=== PATIENT | male | born 1955 | race Caucasian/White ===

== ENCOUNTER 2020-09-06 14:48 | Outpatient (CLI) | payer MEDICARE, SELFPAY ==
--- NOTE | ~2020-09-06 | CT_ITS ---
EXAMINATION: CT lung screening DATE: 09/06/2020 15:35 INDICATION: Personal history of tobacco dependence TECHNIQUE: Computed tomography (CT) of the chest was performed without intravenous contrast. The dose -length product was 114.94 mGy-cm. Automated exposure control and iterative reconstruction technique were employed. COMPARISON: CT dated 01/05/2016 FINDINGS: No thoracic lymphadenopathy. Heart size is normal. Status post median sternotomy for CABG. No significant pleural or pericardial effusion. Visualized aspects of the upper abdomen are unremarka ble. No endobronchial lesions. There is a 7 mm left lower lobe nodule with central calcification, not definitely seen on prior examination, likely benign granuloma. No pneumothorax. No endobronchial les ions. 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 No acute osseous abnormality. IMPRESSION: 1. Lung-RADS category 3: Probably benign. Further evaluation is recommended with noncontrast low-dose chest CT in 6 months. Reviewed, dictated and finalized at location A. IMPRESSION: 1. Lung-RADS category 3: Probably benign. Further evaluation is recommended wit h noncontrast low-dose chest CT in 6 months.
== END 2020-09-06 14:49 | disposition home or self-care (01) ==
LOC: ANHIMG 14:52
PROVIDERS: PCP Internal Medicine; Visit Provider Internal Medicine
DX: Z87.891 Personal history of nicotine dependence (principal); R91.8 Other nonspecific abnormal finding of lung field
CPT/HCPCS: 71271

== ENCOUNTER 2020-09-14 10:51 | Outpatient (CLI) | payer MEDICARE, SELFPAY ==
--- NOTE | ~2020-09-14 | US_ITS ---
EXAMINATION: US aorta [facility] scrn DATE: 09/14/2020 11:21 INDICATION: Abdominal aortic aneurysm screening. TECHNIQUE: Grayscale, color Doppler, and pulsed Doppler images of the aorta and common iliac arteries were obtained. COMPARISON: Chest CT 09/06/2020 FINDINGS: The aorta is normal in caliber and demonstrates atherosclerosis. The right common iliac artery is nor mal in caliber. The left common iliac artery is normal in caliber. IMPRESSION: 1. Aortic atherosclerosis. No aneurysm. Reviewed, dictated and finalized at location A.
== END 2020-09-14 10:52 | disposition home or self-care (01) ==
LOC: ANHIMG 10:57
PROVIDERS: PCP Internal Medicine; Visit Provider Internal Medicine
DX: Z87.891 Personal history of nicotine dependence (principal); I70.0 Atherosclerosis of aorta
CPT/HCPCS: 76706

== ENCOUNTER 2020-09-20 14:41 | Outpatient (CLI) | payer MEDICARE, SELFPAY ==
--- NOTE | ~2020-09-20 | US_ITS ---
EXAMINATION: US retroperitoneal comp DATE: 09/20/2020 15:13 INDICATION: Chronic kidney disease TECHNIQUE: Multiple grayscale and Doppler ultrasound images of the kidneys were obtained. COMPARISON: None. FINDINGS: The right kidney measures 9.2 x 5.7 x 4.8 cm. The left kidney measures 9.3 x 4.1 x 4.8 cm. The kidneys demonstrate normal parenchymal echogenicity. There is no hydronephrosis. The bladder wall measures up to 4 mm in thickness. IMPRESSION: 1. Mild atrophy of the kidneys. Reviewed, dictated and finalized at location B.
== END 2020-09-20 14:42 | disposition home or self-care (01) ==
PROVIDERS: PCP Internal Medicine; Visit Provider Internal Medicine
DX: N18.9 Chronic kidney disease, unspecified (principal)
CPT/HCPCS: 76770

== ENCOUNTER 2020-11-14 00:24 | Day surgery (SDC) | payer MEDICARE, SELFPAY ==
[2020-11-01 14:55] VITALS: BMI 28.4
[2020-11-14 07:07] VITALS: BP 91/67; PULSE 112; RESP 15; TEMP 35.8; O2SAT 99
[2020-11-14] MEDS: LACTATED RINGERS 1,000 ML 150 ML IV CONT (07:13)
[2020-11-14 07:20] LABS: Glucose Point of Care 150 mg/dl (65-105)
--- NOTE | 2020-11-14 07:36 | P.PNAN_ITS ---
Anes - Initial Pre Proc Eval Procedure: Operation Date: 11/14/20 08:30 Proposed Procedures p Screening Colonoscopy - Jasper Adams MD Date/Time: 11/14/20 07:36 Surgeon: Jasper Adams MD Pre Op Diagnosis: neoplasm screening Patient Data Age: 65 Gender: M Height: 1.68 m Weight: 80 kg Last Vital Signs Temp 96.4 F L 11/14/20 07:07 Pulse 112 H 11/14/20 07:07 Resp 15 11/14/20 07:07 BP 91/67 L 11/14/20 07:07 Pulse Ox 99 11/14/20 07:07 Allergies Allergy/AdvReac Type Severity Reaction Status Date / Time No Known Allergies Allergy Verified 11/14/20 07:06 Home Medications Medication Instructions Recorded Confirmed Type aspirin 81 mg tablet,delayed 81 mg PO DAILY #30 tablet 03/23/20 11/14/20 Rx release carvedilol 3.125 mg tablet 3.125 mg PO Q12H 03/23/20 11/14/20 History multivitamin 1 tablet PO DAILY 03/23/20 11/14/20 History metformin 500 mg tablet 500 mg PO BID #180 tablet 09/29/20 11/14/20 Rx atorvastatin 40 mg tablet 40 mg PO DAILY #90 tablet 11/01/20 11/14/20 Rx cholecalciferol (vitamin D3) 125 125 mcg PO DAILY 11/01/20 11/14/20 History mcg (5,000 unit) tablet lisinopril 20 mg tablet 20 mg PO DAILY #90 tablet 11/01/20 11/14/20 Rx Laboratory Tests 11/14/20 07:12 POC Capillary Glucose 150 mg/dl H mg/dl (65-105) Patient hx anesthesia problems: none Family hx anesthesia problems: none PMFSH Past Medical History Medical History (Updated 11/01/20 @ 12:30 by Dandy Denise MD) CKD (chronic kidney disease) Surgical History Surgical History (Updated 03/23/20 @ 09:43 by Constance Wiley CMA) History of heart surgery heart surgery Social History Social History (Updated 11/01/20 @ 08:12 by Annette Laboy CNA) Smoking packs per day: 1 Smoking cigarettes per day: 20.0 Years smoked: 40 Smoking pack-years: 40.00 Smoking status: Former smoker Tobacco type: cigarettes Second hand tobacco smoke exposure: No Smoking end date: 03/03/15 Alcohol intake: never Living arrangements: with family Spiritual care concerns: No Anes - Eval Final PreProcedure Day of Procedure 11/14/20 07:36 Patient weight: overweight Heart: regular rate and rhythm Lungs: clear to auscultation Airway: Mallampati scale class III Neurological: alert and oriented Last oral intake: >/= 8 hours ASA classification: III Emergent: no Anesthetic plan: proceed Anesthesia type and monitoring: general GIVS and standard monitoring Informed Consent: The patient's anesthetic plan and its attendant risks and benefits were discussed with the patient/family/POA. Questions were solicited an d answers provided to the satisfaction of the patient/family/POA.
--- NOTE | 2020-11-14 08:10 | PM.HPGS ---
History of Present Illness History of Present Illness Consent: Risks, benefits, and alternatives have been discussed and questions answered. Patient agrees to proceed with procedure. Chief complaint: neoplasm screening Narrative: Israel Barrett is a 65 year old male here for first screening colonoscopy Review of Systems Constitutional: Constitutional: Denies headache(s) and Denies weakness Eyes: Eyes: Denies blurry vision ENT: Reports Normal hearing present, Denies headache(s) and Denies neck pain Cardiovascular: Cardiovascular: Denies chest pain and Denies dyspnea Respiratory: Respiratory: Denies dyspnea Gastrointestinal: Gastrointestinal: Reports no additional gastrointestinal complaints Genitourinary: Genitourinary: Denies dysuria Musculoskeletal: Musculoskeletal: Denies neck pain Integumentary/Breasts: Skin/Breast: Denies dry skin Neurologic: Reports Normal hearing present, Denies headache(s) and Denies weakness Psychiatric: Psychiatric: Denies anxiety Endocrine: Endocrine: Denies change in body appearance Hematologic/Lymphatic: Hematologic/Lymphatic: Denies easy bleeding Allergic/Immunologic: Allergic/Immunologic: Denies urticaria [facility] Past Medical History Medical History (Updated 11/14/20 @ 08:10 by Jasper Adams MD) CKD (chronic kidney disease) Colon cancer screening Surgical History Surgical History (Updated 03/23/20 @ 09:43 by Constance Wiley CMA) History of heart surgery heart surgery Social History Social History (Updated 11/01/20 @ 08:12 by Annette Laboy CNA) Smoking packs per day: 1 Smoking cigarettes per day: 20.0 Years smoked: 40 Smoking pack-years: 40.00 Smoking status: Former smoker Tobacco type: cigarettes Second hand tobacco smoke exposure: No Smoking end date: 03/03/15 Alcohol intake: never Living arrangements: with family Spiritual care concerns: No Meds Home Medications and Allergies Home Medications Medication Instructions Recorded Confirmed Type aspirin 81 mg tablet,delayed 81 mg PO DAILY #30 tablet 03/23/20 11/14/20 Rx release carvedilol 3.125 mg tablet 3.125 mg PO Q12H 03/23/20 11/14/20 History multivitamin 1 tablet PO DAILY 03/23/20 11/14/20 History metformin 500 mg tablet 500 mg PO BID #180 tablet 09/29/20 11/14/20 Rx atorvastatin 40 mg tablet 40 mg PO DAILY #90 tablet 11/01/20 11/14/20 Rx cholecalciferol (vitamin D3) 125 125 mcg PO DAILY 11/01/20 11/14/20 History mcg (5,000 unit) tablet lisinopril 20 mg tablet 20 mg PO DAILY #90 tablet 11/01/20 11/14/20 Rx Allergies Allergy/AdvReac Type Severity Reaction Status Date / Time No Known Allergies Allergy Verified 11/14/20 07:06 Vital Signs Vital Signs - 24 hr 11/14/20 07:07 Temperature 96.4 F L Pulse Rate 112 H Respiratory Rate 15 Blood Pressure 91/67 L Pulse Oximetry 99 Exam Const: General: comfortable and no acute distress HENMT: General nose exam: Normal nares present Eyes: General: appearance normal, both eyes and all related structures Neck: Neck: no JVD Resp: Auscultation: clear to auscultation bilaterally Cardio: Rate: regular rate Rhythm: regular rhythm GI: Inspection: non-distended GI Palp: Yes Soft to palpation Skin: General skin exam: normal color Neuro: General: gait normal Speech: normal speech Extrem: General: normal to inspection Psych: Mental Status: mental status grossly normal Assessment and Plan Assessment and plan (1) Colon cancer screening: Code(s): Z12.11 - Encounter for screening for malignant neoplasm of colon Status: Acute Assessment and Plan: colonoscopy
[2020-11-14 08:28] VITALS: BP 83/64; PULSE 88; RESP 10; O2SAT 96
[2020-11-14 08:38] VITALS: BP 73/61; PULSE 87; RESP 14; O2SAT 96
[2020-11-14 08:48] VITALS: BP 83/56; PULSE 78; RESP 14; O2SAT 97
[2020-11-14 08:56] VITALS: BP 92/76; PULSE 77; RESP 16; O2SAT 98
== END 2020-11-14 09:10 | disposition home or self-care (01) ==
PROVIDERS: PCP Internal Medicine; Visit Provider Internal Medicine Gastroenterology
PROC: 0DJD8ZZ Inspection of Lower Intestinal Tract, Via Natural or Artificial Opening Endoscopic (ICD-10-PCS; CPT 45378; principal; 2020-11-14 08:30)
DX: Z12.11 Encounter for screening for malignant neoplasm of colon (principal); D12.3 Benign neoplasm of transverse colon; K57.30 Diverticulosis of large intestine without perforation or abscess without bleeding; K64.8 Other hemorrhoids; N18.9 Chronic kidney disease, unspecified; Z87.891 Personal history of nicotine dependence; Z79.82 Long term (current) use of aspirin; Z79.84 Long term (current) use of oral hypoglycemic drugs
CPT/HCPCS: 45385; 82948; 88305; J2704; J7120

== ENCOUNTER 2021-04-09 07:40 | Outpatient (CLI) | payer MEDICARE, SELFPAY ==
--- NOTE | ~2021-04-09 | CT_ITS ---
EXAMINATION: CT lung screening EXAM DATE: 04/09/2021 07:54 INDICATION: Z87.891 - Personal history of nicotine dependence TECHNIQUE: Spiral low dose CT of the chest without contrast. Axial, coronal and sagittal images were reviewed. The dose-length product (DLP) for this examination was 135.30 mGy-cm. The exposure was t ailored according to patient size (auto mA exposure control), and iterative reconstruction (ASIR) was used as additional dose reduction technique. Comparison is made to prior examination from 09/06/2020. FINDINGS: The 5 mm left lower lobe is stable, consistent with postinfectious residua. No new or suspi cious pulmonary nodules. Tracheobronchial tree is patent. There is no mediastinal, hilar or axilla ry lymphadenopathy. There are no pleural or pericardial effusions. There is no pneumothorax. He art normal in size. There is mild to moderate coronary arterial calcification, arterial sclerosis. Mild emphysema, moderate hyperinflation. Upper abdomen is unremarkable. There is thoracic spondyl osis without osteoblastic or osteolytic lesions identified. IMPRESSION: Lung-RADS category 2, benign appearance or behavior (<1% chance of malignancy); recommend continued LDCT screening in 1 year. Reviewed, dictated and finalized at location B. [facility] [employer]
== END 2021-04-09 07:41 | disposition home or self-care (01) ==
PROVIDERS: PCP Internal Medicine; Visit Provider Internal Medicine
DX: Z12.2 Encounter for screening for malignant neoplasm of respiratory organs (principal); Z87.891 Personal history of nicotine dependence
CPT/HCPCS: 71271